=== PATIENT | female | born 1965 | race Caucasian/White ===

== ENCOUNTER → 2017-03-30 | Outpatient (CLI) | payer BC ==
[2017-03-30 08:52] LABS: CHLORIDE,CL 107 mmol/L (98-110); SODIUM,NA 141 mmol/L (136-146)
== END ==
LOC: MW.CHFP 08:02
PROVIDERS: ATTEND Physician Assistant
DX: E03.9 Hypothyroidism, unspecified (principal); E78.5 Hyperlipidemia, unspecified; G89.29 Other chronic pain
CPT/HCPCS: 36415; 80053; 80061; 84443

== ENCOUNTER → 2017-04-10 | Outpatient (CLI) | payer BC ==
--- NOTE | 2017-04-10 12:22 | MY ---
EXAMINATION: Bilateral digital mammography utilizing CAD. HISTORY: Screening exam. Comparison is made to previous studies dated 05/04/2015, 08/31/2011. FINDINGS: Bilateral scattered fibroglandular densities. No suspicious calcifications, masses or a rchitectural distortions. No pathologic appearing lymph nodes, no abnormal skin thickening or nipp le inversion. CAD highlighted regions appear normal at this time. IMPRESSION: BI-RADS category I - negative mammogram. Continued screening according to ACR-ACS gu idelines suggested. THE FALSE-NEGATIVE RATE OF MAMMOGRAM IS APPROXIMATELY 10%. MANAGEMENT OF A PALPABLE ABNORMALITY MUST BE BASED UPON CLINICAL GROUNDS. SENSITIVITY FOR DETECTION OF ABNORMALITIES IN DENSE BREASTS IS LOW. NOTE: A letter will be sent to the patient regarding findings. [facility] [place] -- [facility] [place] [phone] - FAX [phone]
== END ==
LOC: MW.MAM 09:29
PROVIDERS: ATTEND Physician Assistant
DX: Z12.31 Encounter for screening mammogram for malignant neoplasm of breast (principal)
CPT/HCPCS: G0202; G0202-26

== ENCOUNTER 2019-03-24 22:06 | Emergency (ER) | payer BC ==
[2019-03-24] MEDS ORDERED: Sodium Chloride 0.9% 1,000 ML IV ONE (22:23)
[2019-03-24] MEDS ORDERED: Nitroglycerin 0.4 MG Tab.SL SL PRN (22:23)
[2019-03-24] MEDS ORDERED: Aspirin 81 MG Tab.Chew PO ONE (22:23)
[2019-03-24] MEDS ORDERED: Pantoprazole 40 MG Vial IVPUSH ONE (22:23)
[2019-03-24] MEDS ORDERED: Sodium Chloride 0.9% 10 ML Syringe FLUSH PRN (22:23)
[2019-03-24] MEDS ORDERED: Sodium Chloride 0.9% 2.5 ML Syringe FLUSH PRN (22:23)
--- NOTE | 2019-03-24 22:26 | EDM.PDOC ---
ED HPI GENERAL MEDICAL PROBLEM - General Chief Complaint: Chest Pain Stated Complaint: CHEST PAIN Time Seen by Provider: 03/24/19 22:16 - History of Present Illness INITIAL COMMENTS - FREE TEXT/NARRATIVE: HISTORY AND PHYSICAL: History of present illness: The patient is a 53-year-old female with a history of hypothyroidism but no cardiac or pulmonary history and presents with on and off mid chest pain that started this morning as she was doing normal activities. The patient said she slept fine last evening and woke up and did not have the pain initially but as the day went on it was coming and going. At its worse she rated as a 10 over 10 and currently in the ED it is a 5/10. She took [id number] Tums as well as doing a nebulizer treatment and neither of which helped it but she went through the day thinking that maybe it would go away and she is now here for evaluation. She says it is worse when she is up going around and walking but not specifically worse with deep breaths or movement. She says she has had this in the past but it is never indoor throughout the day which is what worried her. Tonight she had the discomfort again in the mid chest and it radiated to both armpits and she was concerned that it did not radiate to her jaw back or abdomen. She's had no abdominal pain nausea or vomiting and no GI symptoms. She has no back pain no diaphoresis. She does have a significant family history of a mother who had a heart attack at 50. She does smoke cigarettes but denies drug use. She has no leg pain or swelling the patient also says she has no pulmonary disease and only has a nebulizer at home for prior illness. Review of systems: As per history of present illness and below otherwise all systems reviewed and negative. Past medical history: As per history of present illness and as reviewed below otherwise noncontributory. Surgical history: As per history of present illness and as reviewed below otherwise noncontributory. Social history: No reported history of drug or alcohol abuse. Family history: As per history of present illness and as reviewed below otherwise noncontributory. Physical exam: General: Well-developed well-nourished female who is nontoxic and vital signs are noted by me. She seems a little anxious in the room rearranging her blanket as I'm trying to examine her. HEENT: Atraumatic, normocephalic, negative for conjunctival pallor or scleral icterus, mucous membranes moist, throat clear, neck supple, nontender, trachea midline. Lungs: Clear to auscultation, breath sounds equal bilaterally, chest nontender. Heart: S1S2, regular, negative for clicks, rubs, or JVD. Abdomen: Soft, nondistended, nontender. Negative for masses or hepatosplenomegaly. Negative for costovertebral tenderness. Pelvis: Stable nontender. Genitourinary: Deferred. Rectal: Deferred. Extremities: Atraumatic, negative for cords or calf pain. Neurovascular unremarkable. No pedal edema or leg asymmetry Neuro: Awake, alert, oriented. Cranial nerves II through XII unremarkable. Cerebellum unremarkable. Motor and sensory unremarkable throughout. Exam nonfocal. Diagnostics: EKG chest x-ray CBC CMP amylase lipase INR troponin H. pylori Therapeutics: IV O2 monitor IV fluids aspirin Protonix nitroglycerin sublingual Aspirin, Nitropaste was ordered for transfer The patient told nursing that her chest pain was a 3/10 prior to receiving sublingual nitroglycerin and after one nitroglycerin it is still 3/10 and she is refusing anymore nitroglycerin at this time. On reevaluation the patient is telling me that the pain is barely a 1/10 and is almost completely gone. 2321: This case was discussed with Dr. Olmedo our hospitalist was feels uncomfortable accepting the patient in light of her risk factors and chest pain with a positive troponin. The patient is aware of this conversation and we will arrange for transfer to [facility]. 2324: Case was discussed with Dr. Hurts in the ER at [facility] who accepts the patient for transfer by ground transfer Impression: Chest pain, positive troponin rule out an STEMI CT Definitive disposition and diagnosis as appropriate pending reevaluation and review of above. - Related Data Allergies Allergy/AdvReac Type Severity Reaction Status Date / Time cefuroxime sodium Allergy Hives Verified 03/19/14 09:39 [From Zinacef] cephalexin monohydrate Allergy Hives Verified 03/19/14 09:39 [From Keflex] Penicillins Allergy Hives Verified 03/19/14 09:39 Home Meds: Home Meds Levothyroxine Sodium [Synthroid] 25 mcg PO DAILY 03/24/19 [History] Omeprazole Magnesium [Prilosec Otc] 20 mg PO DAILY 03/24/19 [History] ED ROS GENERAL - Review of Systems Review Of Systems: ROS reveals no pertinent complaints other than HPI. ED EXAM, GENERAL - Physical Exam Exam: See Below (See dictation) Course - Vital Signs Last Recorded V/S: Last Vital Signs Temp 36.3 C 03/24/19 22:11 Pulse 86 03/24/19 22:11 Resp 20 03/24/19 22:11 BP 152/69 H 03/24/19 22:48 Pulse Ox 96 03/24/19 22:22 - Orders/Labs/Meds Orders: Active Orders 24 hr Category Date Time Status Cardiac Monitoring [RC] . DIRECTED Care 03/24/19 22:22 Active EKG Documentation Completion [RC] STAT Care 03/24/19 22:22 Active Oxygen Therapy, ED [RC] ASDIRECTED Care 03/24/19 22:22 Active Pulse Oximetry [RC] ASDIRECTED Care 03/24/19 22:22 Active Acetaminophen [Tylenol] Med 03/24/19 23:27 Once 650 mg PO NOW ONE Nitroglycerin [Nitro-Bid 2%] Med 03/24/19 23:27 Once 0.5 gm TOP ONETIME ONE Nitroglycerin [Nitrostat] Med 03/24/19 22:23 Active 0.4 mg SL Q5M PRN Sodium Chloride 0.9% [Saline Flush] Med 03/24/19 22:23 Active 10 ml FLUSH ASDIRECTED PRN Sodium Chloride 0.9% [Saline Flush] Med 03/24/19 22:23 Active 2.5 ml FLUSH ASDIRECTED PRN Saline Lock Insert [OM.PC] Stat Oth 03/24/19 22:22 Ordered Medication Orders Nitroglycerin (Nitrostat) 0.4 mg SL Q5M PRN PRN Reason: Chest Pain Last Admin: 03/24/19 22:48 Dose: 0.4 mg Sodium Chloride (Saline Flush) 10 ml FLUSH ASDIRECTED PRN PRN Reason: Keep Vein Open Sodium Chloride (Saline Flush) 2.5 ml FLUSH ASDIRECTED PRN PRN Reason: Keep Vein Open Labs: Laboratory Tests 03/24/19 03/24/19 03/24/19 Range/Units 22:14 22:14 22:14 WBC 8.19 (4.0-11.0) K/uL RBC 4.72 (4.30-5.90) M/uL Hgb 14.6 (12.0-16.0) g/dL Hct 42.5 (36.0-46.0) % MCV 90.0 (80.0-98.0) fL MCH 30.9 (27.0-32.0) pg MCHC 34.4 (31.0-37.0) g/dL RDW Std Deviation 40.9 (28.0-62.0) fl RDW Coeff of [place] 12 (11.0-15.0) % Plt Count 218 (150-400) K/uL MPV 10.50 (7.40-12.00) fL Neut % (Auto) 44.3 L (48.0-80.0) % Lymph % (Auto) 41.8 H (16.0-40.0) % [place] % (Auto) 9.4 (0.0-15.0) % Eos % (Auto) 3.9 (0.0-7.0) % Baso % (Auto) 0.6 (0.0-1.5) % Neut # (Auto) 3.6 (1.4-5.7) K/uL Lymph # (Auto) 3.4 H (0.6-2.4) K/uL [place] # (Auto) 0.8 (0.0-0.8) K/uL Eos # (Auto) 0.3 (0.0-0.7) K/uL Baso # (Auto) 0.1 (0.0-0.1) K/uL Nucleated RBC % 0.0 /100WBC Nucleated RBCs # 0 K/uL INR 0.94 Sodium 139 (136-145) mmol/L Potassium 3.2 L (3.5-5.1) mmol/L Chloride 103 (98-107) mmol/L Carbon Dioxide 26.3 (21.0-32.0) mmol/L BUN 16 (7.0-18.0) mg/dL Creatinine 1.1 H (0.6-1.0) mg/dL Est Cr Clr Drug Dosing 45.70 mL/min Estimated GFR (MDRD) 51.6 ml/min Glucose 134 H (74-106) mg/dL Calcium 8.8 (8.5-10.1) mg/dL Total Bilirubin 0.3 (0.2-1.0) mg/dL AST 14 L (15-37) IU/L ALT 18 (14-63) IU/L Alkaline Phosphatase 84 (46-116) U/L Troponin I 0.073 H* (0.000-0.056) ng/mL Total Protein 8.0 (6.4-8.2) g/dL Albumin 4.1 (3.4-5.0) g/dL Globulin 3.9 (2.6-4.0) g/dL Albumin/Globulin Ratio 1.1 (0.9-1.6) Amylase 55 (25-115) U/L Lipase 257 (73-393) U/L H. pylori IgG Antibody (NEG) 03/24/19 Range/Units 22:14 WBC (4.0-11.0) K/uL RBC (4.30-5.90) M/uL Hgb (12.0-16.0) g/dL Hct (36.0-46.0) % MCV (80.0-98.0) fL MCH (27.0-32.0) pg MCHC (31.0-37.0) g/dL RDW Std Deviation (28.0-62.0) fl RDW Coeff of [place] (11.0-15.0) % Plt Count (150-400) K/uL MPV (7.40-12.00) fL Neut % (Auto) (48.0-80.0) % Lymph % (Auto) (16.0-40.0) % [place] % (Auto) (0.0-15.0) % Eos % (Auto) (0.0-7.0) % Baso % (Auto) (0.0-1.5) % Neut # (Auto) (1.4-5.7) K/uL Lymph # (Auto) (0.6-2.4) K/uL [place] # (Auto) (0.0-0.8) K/uL Eos # (Auto) (0.0-0.7) K/uL Baso # (Auto) (0.0-0.1) K/uL Nucleated RBC % /100WBC Nucleated RBCs # K/uL INR Sodium (136-145) mmol/L Potassium (3.5-5.1) mmol/L Chloride (98-107) mmol/L Carbon Dioxide (21.0-32.0) mmol/L BUN (7.0-18.0) mg/dL Creatinine (0.6-1.0) mg/dL Est Cr Clr Drug Dosing mL/min Estimated GFR (MDRD) ml/min Glucose (74-106) mg/dL Calcium (8.5-10.1) mg/dL Total Bilirubin (0.2-1.0) mg/dL AST (15-37) IU/L ALT (14-63) IU/L Alkaline Phosphatase (46-116) U/L Troponin I (0.000-0.056) ng/mL Total Protein (6.4-8.2) g/dL Albumin (3.4-5.0) g/dL Globulin (2.6-4.0) g/dL Albumin/Globulin Ratio (0.9-1.6) Amylase (25-115) U/L Lipase (73-393) U/L H. pylori IgG Antibody NEGATIVE (NEG) Meds: Medications Generic Name Dose Route Start Last Admin Trade Name Freq PRN Reason Stop Dose Admin Nitroglycerin 0.4 mg 03/24/19 22:23 03/24/19 22:48 Nitrostat SL 0.4 mg Q5M PRN Administration Chest Pain Sodium Chloride 10 ml 03/24/19 22:23 Saline Flush FLUSH ASDIRECTED PRN Keep Vein Open Sodium Chloride 2.5 ml 03/24/19 22:23 Saline Flush FLUSH ASDIRECTED PRN Keep Vein Open Discontinued Medications Generic Name Dose Route Start Last Admin Trade Name Freq PRN Reason Stop Dose Admin Aspirin 324 mg 03/24/19 22:23 03/24/19 22:42 Aspirin PO 03/24/19 22:24 324 mg ONETIME ONE Administration Sodium Chloride 1,000 mls @ 999 mls/hr 03/24/19 22:23 03/24/19 22:42 Normal Saline IV 03/24/19 23:23 999 mls/hr STAT ONE Administration Pantoprazole Sodium 80 mg 03/24/19 22:23 03/24/19 22:43 Protonix Iv IVPUSH 03/24/19 22:24 80 mg .BOLUS ONE Administration Sodium Chloride 20 ml 03/24/19 22:32 03/24/19 22:43 Normal Saline IV 03/24/19 22:33 20 ml NOW STA Administration Departure - Departure Time of Disposition: 23:29 Disposition: DC/Tfer to Acute Hospital 02 Condition: Good Clinical Impression: Elevated troponin Chest pain Qualifiers: Chest pain type: unspecified Qualified Code(s): R07.9 - Chest pain, unspecified - Discharge Information Forms: ED Department Discharge - My Orders Last 24 Hours: My Active Orders 03/24/19 22:22 Cardiac Monitoring [RC] . DIRECTED EKG Documentation Completion [RC] STAT Oxygen Therapy, ED [RC] ASDIRECTED Pulse Oximetry [RC] ASDIRECTED Saline Lock Insert [OM.PC] Stat 03/24/19 22:23 Nitroglycerin [Nitrostat] 0.4 mg SL Q5M PRN Sodium Chloride 0.9% [Saline Flush] 10 ml FLUSH ASDIRECTED PRN Sodium Chloride 0.9% [Saline Flush] 2.5 ml FLUSH ASDIRECTED PRN 03/24/19 23:27 Acetaminophen [Tylenol] 650 mg PO NOW ONE Nitroglycerin [Nitro-Bid 2%] 0.5 gm TOP ONETIME ONE - Assessment/Plan Last 24 Hours: My Active Orders 03/24/19 22:22 Cardiac Monitoring [RC] . DIRECTED EKG Documentation Completion [RC] STAT Oxygen Therapy, ED [RC] ASDIRECTED Pulse Oximetry [RC] ASDIRECTED Saline Lock Insert [OM.PC] Stat 03/24/19 22:23 Nitroglycerin [Nitrostat] 0.4 mg SL Q5M PRN Sodium Chloride 0.9% [Saline Flush] 10 ml FLUSH ASDIRECTED PRN Sodium Chloride 0.9% [Saline Flush] 2.5 ml FLUSH ASDIRECTED PRN 03/24/19 23:27 Acetaminophen [Tylenol] 650 mg PO NOW ONE Nitroglycerin [Nitro-Bid 2%] 0.5 gm TOP ONETIME ONE
[2019-03-24] MEDS ORDERED: Sodium Chloride 0.9% 10 ML SDV IV STA (22:32)
--- NOTE | 2019-03-24 23:14 | CR ---
INDICATION: Chest pain COMPARISON: None available. FINDINGS: An erect single view of the chest was obtained at 23 06 hours. The lungs are clear. No focal or diffuse infiltrates are present. The heart is normal in size. The mediastinum is normal in appearance. The osseous structures are normal in appearance for the patient`s age. IMPRESSION: Normal chest single view. Dictated by Leandro Harris MD @ Mar 24 2019 11:11PM Signed by Dr. Leandro Harris @ Mar 24 2019 11:12PM
[2019-03-24] MEDS ORDERED: Nitroglycerin 2% Oint 1 GM UD Packet TOP ONE (23:27)
[2019-03-24] MEDS ORDERED: Acetaminophen 325 MG Tab PO ONE (23:27)
== END 2019-03-25 00:50 ==
LOC: MW.ED 22:06
DX: R07.9 Chest pain, unspecified (principal); R79.89 Other specified abnormal findings of blood chemistry; Z88.8 Allergy status to other drugs, medicaments and biological substances; Z88.0 Allergy status to penicillin; Z79.899 Other long term (current) drug therapy
CPT/HCPCS: 36415; 71045; 80053; 82150; 83690; 84484; 85025; 85610; 86677; 93005; 96361; 96374; 99285; A9270; C9113; J7040; J7050

== ENCOUNTER 2019-04-10 14:24 | Observation (INO) | payer BC ==
[2019-04-10] MEDS ORDERED: Aspirin 81 MG Tab.Chew PO ONE (14:36)
--- NOTE | 2019-04-10 14:36 | EDM.PDOC ---
ED HPI GENERAL MEDICAL PROBLEM - General Chief Complaint: Neurological Problem Stated Complaint: chest pain Time Seen by Provider: 04/10/19 14:33 - History of Present Illness INITIAL COMMENTS - FREE TEXT/NARRATIVE: HISTORY AND PHYSICAL: History of present illness: Patient's 53-year-old white female with history of coronary artery disease and myocardial infarction who presents with concern of dizziness and near syncope that occurred while she was at work patient is still a smoker she denies chest pain shortness of breath nausea or vomiting she denies any other neurological signs or symptoms. Review of systems: As per history of present illness and below otherwise all systems reviewed and negative. Past medical history: As per history of present illness and as reviewed below otherwise noncontributory. Surgical history: As per history of present illness and as reviewed below otherwise noncontributory. Social history: No reported history of drug or alcohol abuse. Family history: As per history of present illness and as reviewed below otherwise noncontributory. Physical exam: HEENT: Atraumatic, normocephalic, pupils reactive, negative for conjunctival pallor or scleral icterus, mucous membranes dry, throat clear, neck supple, nontender, trachea midline. Lungs: Clear to auscultation, breath sounds equal bilaterally, chest nontender. Heart: S1S2, regular, negative for clicks, rubs, or JVD. Abdomen: Soft, nondistended, nontender. Negative for masses or hepatosplenomegaly. Negative for costovertebral tenderness. Pelvis: Stable nontender. Genitourinary: Deferred. Rectal: Deferred. Extremities: Atraumatic, negative for cords or calf pain. Neurovascular unremarkable. Neuro: Awake, alert, oriented. Cranial nerves II through XII unremarkable. Cerebellum unremarkable. Motor and sensory unremarkable throughout. Exam nonfocal. Diagnostics: CBC CMP troponin PT/INR chest x-ray EKG CT brain Therapeutics: Saline 1 L bolus Impression: #1 dizziness with near syncope #2 history of coronary artery disease #3 history of MN Definitive disposition and diagnosis as appropriate pending reevaluation and review of above. - Related Data Allergies Allergy/AdvReac Type Severity Reaction Status Date / Time cefuroxime sodium Allergy Hives Verified 04/10/19 14:37 [From Zinacef] cephalexin monohydrate Allergy Hives Verified 04/10/19 14:37 [From Keflex] Penicillins Allergy Hives Verified 04/10/19 14:37 Home Meds: Home Meds ALPRAZolam [Xanax] 0.25 - 0.5 mg PO BID PRN 04/10/19 [History] Acetaminophen with Codeine [Tylenol with Codeine #3 Tablet] 30 - 300 mg PO Q4H PRN 04/10/19 [History] Aspirin [Lo-Dose Aspirin EC] 81 mg PO DAILY 04/10/19 [History] Estrogens, Conjugated [Premarin Vaginal Crm] 0.5 gm VAG MOWEFR@2100 04/10/19 [ History] Levothyroxine Sodium [Levoxyl] 37.5 mcg PO ACBREAKFAST 04/10/19 [History] Metoprolol Tartrate 25 mg PO BID 04/10/19 [History] Omeprazole 20 mg PO BIDAC 04/10/19 [History] Potassium Chloride 10 meq PO BIDMEALS 04/10/19 [History] Ticagrelor [Brilinta] 90 mg PO BID 04/10/19 [History] atorvaSTATin [Lipitor] 40 mg PO BEDTIME 04/10/19 [History] Past Medical History Endocrine/Metabolic History: Reports: Hypothyroidism - Infectious Disease History Infectious Disease History: Reports: Shingles - Past Surgical History GI Surgical History: Reports: Colonoscopy Female Surgical History: Reports: Section, Hysterectomy Social & Family History - Family History Cardiac: Reports: MN Other Cardiac Family History: mother has had two MN's - Caffeine Use Caffeine Use: Reports: Coffee ED ROS GENERAL - Review of Systems Review Of Systems: ROS reveals no pertinent complaints other than HPI. ED EXAM, GENERAL - Physical Exam Exam: See Below (See dictation) Course - Vital Signs Last Recorded V/S: Last Vital Signs Temp 36.9 C 04/10/19 14:38 Pulse 69 04/10/19 16:32 Resp 12 04/10/19 16:32 BP 152/86 H 04/10/19 16:32 Pulse Ox 97 04/10/19 16:32 - Orders/Labs/Meds Orders: Active Orders 24 hr Category Date Time Status Cardiac Monitoring [RC] . DIRECTED Care 04/10/19 14:36 Active EKG Documentation Completion [RC] STAT Care 04/10/19 14:36 Active Sodium Chloride 0.9% [Normal Saline] 1,000 ml Med 04/10/19 14:45 Active IV ASDIRECTED Medication Orders Sodium Chloride (Normal Saline) 1,000 mls @ 999 mls/hr IV ASDIRECTED JOSE Last Admin: 04/10/19 14:34 Dose: 999 mls/hr Labs: Laboratory Tests 04/10/19 04/10/19 04/10/19 Range/Units 14:55 14:55 14:55 WBC 7.59 (4.0-11.0) K/uL RBC 4.63 (4.30-5.90) M/uL Hgb 14.2 (12.0-16.0) g/dL Hct 41.2 (36.0-46.0) % MCV 89.0 (80.0-98.0) fL MCH 30.7 (27.0-32.0) pg MCHC 34.5 (31.0-37.0) g/dL RDW Std Deviation 39.7 (28.0-62.0) fl RDW Coeff of Duncan 13 (11.0-15.0) % Plt Count 256 (150-400) K/uL MPV 10.20 (7.40-12.00) fL Neut % (Auto) 48.4 (48.0-80.0) % Lymph % (Auto) 38.7 (16.0-40.0) % [place] % (Auto) 8.2 (0.0-15.0) % Eos % (Auto) 3.8 (0.0-7.0) % Baso % (Auto) 0.9 (0.0-1.5) % Neut # (Auto) 3.7 (1.4-5.7) K/uL Lymph # (Auto) 2.9 H (0.6-2.4) K/uL [place] # (Auto) 0.6 (0.0-0.8) K/uL Eos # (Auto) 0.3 (0.0-0.7) K/uL Baso # (Auto) 0.1 (0.0-0.1) K/uL Nucleated RBC % 0.0 /100WBC Nucleated RBCs # 0 K/uL INR 0.94 Sodium 142 (136-145) mmol/L Potassium 3.9 (3.5-5.1) mmol/L Chloride 104 (98-107) mmol/L Carbon Dioxide 25.8 (21.0-32.0) mmol/L BUN 15 (7.0-18.0) mg/dL Creatinine 1.0 (0.6-1.0) mg/dL Est Cr Clr Drug Dosing 61.81 mL/min Estimated GFR (MDRD) 57.6 ml/min Glucose 99 (74-106) mg/dL Calcium 8.7 (8.5-10.1) mg/dL Total Bilirubin 0.3 (0.2-1.0) mg/dL AST 24 (15-37) IU/L ALT 27 (14-63) IU/L Alkaline Phosphatase 96 (46-116) U/L Troponin I < 0.050 (0.000-0.056) ng/mL Total Protein 7.7 (6.4-8.2) g/dL Albumin 4.0 (3.4-5.0) g/dL Globulin 3.7 (2.6-4.0) g/dL Albumin/Globulin Ratio 1.1 (0.9-1.6) Urine Color Urine Appearance Urine pH (5.0-8.0) Ur Specific [place] (1.001-1.035) Urine Protein (NEGATIVE) mg/dL Urine Glucose (UA) (NEGATIVE) mg/dL Urine Ketones (NEGATIVE) mg/dL Urine Occult Blood (NEGATIVE) Urine Nitrite (NEGATIVE) Urine Bilirubin (NEGATIVE) Urine Urobilinogen (<2.0) EU/dL Ur Leukocyte Esterase (NEGATIVE) Urine RBC (0-2/HPF) Urine WBC (0-5/HPF) Ur Epithelial Cells (NONE-FEW) Urine Bacteria (NEGATIVE) 04/10/19 Range/Units 15:12 WBC (4.0-11.0) K/uL RBC (4.30-5.90) M/uL Hgb (12.0-16.0) g/dL Hct (36.0-46.0) % MCV (80.0-98.0) fL MCH (27.0-32.0) pg MCHC (31.0-37.0) g/dL RDW Std Deviation (28.0-62.0) fl RDW Coeff of [place] (11.0-15.0) % Plt Count (150-400) K/uL MPV (7.40-12.00) fL Neut % (Auto) (48.0-80.0) % Lymph % (Auto) (16.0-40.0) % [place] % (Auto) (0.0-15.0) % Eos % (Auto) (0.0-7.0) % Baso % (Auto) (0.0-1.5) % Neut # (Auto) (1.4-5.7) K/uL Lymph # (Auto) (0.6-2.4) K/uL [place] # (Auto) (0.0-0.8) K/uL Eos # (Auto) (0.0-0.7) K/uL Baso # (Auto) (0.0-0.1) K/uL Nucleated RBC % /100WBC Nucleated RBCs # K/uL INR Sodium (136-145) mmol/L Potassium (3.5-5.1) mmol/L Chloride (98-107) mmol/L Carbon Dioxide (21.0-32.0) mmol/L BUN (7.0-18.0) mg/dL Creatinine (0.6-1.0) mg/dL Est Cr Clr Drug Dosing mL/min Estimated GFR (MDRD) ml/min Glucose (74-106) mg/dL Calcium (8.5-10.1) mg/dL Total Bilirubin (0.2-1.0) mg/dL AST (15-37) IU/L ALT (14-63) IU/L Alkaline Phosphatase (46-116) U/L Troponin I (0.000-0.056) ng/mL Total Protein (6.4-8.2) g/dL Albumin (3.4-5.0) g/dL Globulin (2.6-4.0) g/dL Albumin/Globulin Ratio (0.9-1.6) Urine Color YELLOW Urine Appearance CLEAR Urine pH 6.5 (5.0-8.0) Ur Specific [place] <= 1.005 (1.001-1.035) Urine Protein NEGATIVE (NEGATIVE) mg/dL Urine Glucose (UA) NEGATIVE (NEGATIVE) mg/dL Urine Ketones NEGATIVE (NEGATIVE) mg/dL Urine Occult Blood NEGATIVE (NEGATIVE) Urine Nitrite NEGATIVE (NEGATIVE) Urine Bilirubin NEGATIVE (NEGATIVE) Urine Urobilinogen 0.2 (<2.0) EU/dL Ur Leukocyte Esterase NEGATIVE (NEGATIVE) Urine RBC 0-2 (0-2/HPF) Urine WBC 0-2 (0-5/HPF) Ur Epithelial Cells OCCASIONAL (NONE-FEW) Urine Bacteria RARE (NEGATIVE) Meds: Medications Generic Name Dose Route Start Last Admin Trade Name Freq PRN Reason Stop Dose Admin Sodium Chloride 1,000 mls @ 999 mls/hr 04/10/19 14:45 04/10/19 14:34 Normal Saline IV 999 mls/hr ASDIRECTED JOSE Administration Departure - Departure Time of Disposition: 16:45 Disposition: Refer to Observation Condition: Good Clinical Impression: Near syncope, Dizziness, History of coronary artery disease - Discharge Information Referrals: PCP,None [Primary Care Provider] - Forms: ED Department Discharge - My Orders Last 24 Hours: My Active Orders 04/10/19 14:36 Cardiac Monitoring [RC] . DIRECTED EKG Documentation Completion [RC] STAT 04/10/19 14:45 Sodium Chloride 0.9% [Normal Saline] 1,000 ml IV ASDIRECTED - Assessment/Plan Last 24 Hours: My Active Orders 04/10/19 14:36 Cardiac Monitoring [RC] . DIRECTED EKG Documentation Completion [RC] STAT 04/10/19 14:45 Sodium Chloride 0.9% [Normal Saline] 1,000 ml IV ASDIRECTED
[2019-04-10] MEDS ORDERED: Sodium Chloride 0.9% 1,000 ML IV SCH ×2 (14:45→19:00)
--- NOTE | 2019-04-10 15:20 | CR ---
EXAMINATION: Portable chest radiograph. HISTORY: Dizziness. FINDINGS: The trachea is midline. The cardiomediastinal silhouette is within normal limits. Probable calcified right infrahilar lymph nodes. No pulmonary infiltrates, effusions or pneumothorax. Osseous structures appear unremarkable. IMPRESSION: No acute cardiopulmonary process.
[2019-04-10 15:40] LABS: CHLORIDE,CL 104 mmol/L (98-107); SODIUM,NA 142 mmol/L (136-145)
--- NOTE | 2019-04-10 16:17 | CT ---
INDICATION: Dizziness off and on ever since her heart attack [address] HEAD WITHOUT CONTRAST TECHNIQUE: Multiple axial CT images were performed through the head without intravenous contrast administration. COMPARISON: No previous studies are currently available for comparison. FINDINGS: No acute intracranial hemorrhage is identified. No extra-axial collections are evident and there is no mass effect or midline shift. Ventricles are normal in size and configuration. Brain parenchyma appears normal with unremarkable momin-white differentiation. Osseous structures are within normal limits and no fractures are seen. Included portions of the paranasal sinuses and mastoid air cells are normally aerated. IMPRESSION: Normal non-contrast head CT. DAMIR PATIÑO MD [employer] [employer] Dictated by: Montez Patiño MD @ 04/10/2019 16:16:29 (Electronically Signed)
--- NOTE | 2019-04-10 17:41 | PCM.HP ---
H&P History of Present Illness - General Date of Service: 04/10/19 Admit Problem/Dx: Admission Diagnosis/Problem Admission Diagnosis/Problem Near syncope Source of Information: Patient, Family History Limitations: Reports: No Limitations - History of Present Illness Initial Comments - Free Text/Narative: The patient is a 53-year-old lady who has a known history of coronary artery disease and myocardial infarction which she had stented 2 weeks ago. Since that time the patient says that she has been "not quite right" and is still having difficulty. The patient says that she has been having trouble with shortness of breath, dizziness and lightheadedness, fatigue and weakness. The patient has denied any chest pain. The patient had been evaluated as a follow-up and was told to return to cardiology in 3 months. Has been taking her medications as prescribed. The patient unfortunately is still a smoker and she's trying to quit. The patient has no other complaints at this time. Onset of Symptoms: Reports: Gradual Duration of Symptoms: Reports: Week(s): Location: Reports: Generalized Severity: Moderate Improves with: Reports: None Worsens with: Reports: None Context: Reports: Other (Recent coronary artery stenting) Associated Symptoms: Reports: Malaise - Related Data Allergies/Adverse Reactions: Allergies Allergy/AdvReac Type Severity Reaction Status Date / Time cefuroxime sodium Allergy Hives Verified 04/10/19 14:37 [From Zinacef] cephalexin monohydrate Allergy Hives Verified 04/10/19 14:37 [From Keflex] Penicillins Allergy Hives Verified 04/10/19 14:37 Home Medications: Home Meds ALPRAZolam [Xanax] 0.25 - 0.5 mg PO BID PRN 04/10/19 [History] Acetaminophen with Codeine [Tylenol with Codeine #3 Tablet] 30 - 300 mg PO Q4H PRN 04/10/19 [History] Aspirin [Lo-Dose Aspirin EC] 81 mg PO DAILY 04/10/19 [History] Levothyroxine Sodium [Levoxyl] 37.5 mcg PO ACBREAKFAST 04/10/19 [History] Metoprolol Tartrate 25 mg PO BID 04/10/19 [History] Omeprazole 20 mg PO BIDAC 04/10/19 [History] Ticagrelor [Brilinta] 90 mg PO BID 04/10/19 [History] atorvaSTATin [Lipitor] 40 mg PO BEDTIME 04/10/19 [History] Past Medical History HEENT History: Reports: None Cardiovascular History: Reports: CAD, UT, Stents Respiratory History: Reports: None Gastrointestinal History: Reports: GERD Genitourinary History: Reports: None Musculoskeletal History: Reports: None Neurological History: Reports: None Psychiatric History: Reports: Anxiety Endocrine/Metabolic History: Reports: Hypothyroidism Hematologic History: Reports: None - Infectious Disease History Infectious Disease History: Reports: Chicken Pox, Shingles - Past Surgical History GI Surgical History: Reports: Colonoscopy Female Surgical History: Reports: Section, Hysterectomy Social & Family History - Family History Cardiac: Reports: UT Other Cardiac Family History: mother has had two UT's - Tobacco Use Smoking Status *Q: Current Every Day Smoker Years of Tobacco use: 40 Packs/Tins Daily: 0.5 - Caffeine Use Caffeine Use: Reports: Coffee - Alcohol Use Alcohol Use History: No - Recreational Drug Use Recreational Drug Use: No - Living Situation & Occupation Living situation: Reports: , with Family Occupation: Retired H&P Review of Systems - Review of Systems: Review Of Systems: See Below General: Reports: Malaise, Weakness, Fatigue, Decreased Appetite HEENT: Reports: No Symptoms Pulmonary: Reports: Shortness of Breath Cardiovascular: Reports: Dyspnea on Exertion, Orthopnea, Edema, Lightheadedness Gastrointestinal: Reports: No Symptoms Genitourinary: Reports: No Symptoms Musculoskeletal: Reports: No Symptoms Skin: Reports: No Symptoms Psychiatric: Reports: No Symptoms Neurological: Reports: No Symptoms Hematologic/Lymphatic: Reports: No Symptoms Immunologic: Reports: No Symptoms Exam - Exam Exam: See Below - Vital Signs Vital Signs: Last Vital Signs Temp 36.9 C 04/10/19 14:38 Pulse 65 04/10/19 16:52 Resp 12 04/10/19 16:52 BP 156/89 H 04/10/19 16:52 Pulse Ox 98 04/10/19 16:52 Weight: 79.333 kg - Exam Quality Assessment: No: Supplemental Oxygen General: Alert, Oriented, Cooperative HEENT: Conjunctiva Clear, EACs Clear, EOMI, Hearing Intact, Mucosa Moist & [place] , Pupils Equal, PERRLA Neck: Supple, Trachea Midline, JVD Lungs: Normal Respiratory Effort, Crackles (Bibasilar) Cardiovascular: Regular Rate, Regular Rhythm, Normal S1, Normal S2 GI/Abdominal Exam: Normal Bowel Sounds, Soft, Non-Tender, No Distention. No: Guarding, Rigid, Rebound Back Exam: Normal Inspection, Full Range of Motion Extremities: Normal Inspection, Normal Range of Motion, No Pedal Edema Skin: Warm, Dry, Intact Neurological: Cranial Nerves Intact Neuro Extensive - Mental Status: Alert, Oriented x3 Psychiatric: Alert, Normal Affect, Normal Mood - Patient Data Lab Results Last 24 hrs: Laboratory Results - last 24 hr 04/10/19 04/10/19 04/10/19 Range/Units 14:55 14:55 14:55 WBC 7.59 (4.0-11.0) K/uL RBC 4.63 (4.30-5.90) M/uL Hgb 14.2 (12.0-16.0) g/dL Hct 41.2 (36.0-46.0) % MCV 89.0 (80.0-98.0) fL MCH 30.7 (27.0-32.0) pg MCHC 34.5 (31.0-37.0) g/dL RDW Std Deviation 39.7 (28.0-62.0) fl RDW Coeff of Duncan 13 (11.0-15.0) % Plt Count 256 (150-400) K/uL MPV 10.20 (7.40-12.00) fL Neut % (Auto) 48.4 (48.0-80.0) % Lymph % (Auto) 38.7 (16.0-40.0) % [place] % (Auto) 8.2 (0.0-15.0) % Eos % (Auto) 3.8 (0.0-7.0) % Baso % (Auto) 0.9 (0.0-1.5) % Neut # (Auto) 3.7 (1.4-5.7) K/uL Lymph # (Auto) 2.9 H (0.6-2.4) K/uL [place] # (Auto) 0.6 (0.0-0.8) K/uL Eos # (Auto) 0.3 (0.0-0.7) K/uL Baso # (Auto) 0.1 (0.0-0.1) K/uL Nucleated RBC % 0.0 /100WBC Nucleated RBCs # 0 K/uL INR 0.94 Sodium 142 (136-145) mmol/L Potassium 3.9 (3.5-5.1) mmol/L Chloride 104 (98-107) mmol/L Carbon Dioxide 25.8 (21.0-32.0) mmol/L BUN 15 (7.0-18.0) mg/dL Creatinine 1.0 (0.6-1.0) mg/dL Est Cr Clr Drug Dosing 61.81 mL/min Estimated GFR (MDRD) 57.6 ml/min Glucose 99 (74-106) mg/dL Calcium 8.7 (8.5-10.1) mg/dL Total Bilirubin 0.3 (0.2-1.0) mg/dL AST 24 (15-37) IU/L ALT 27 (14-63) IU/L Alkaline Phosphatase 96 (46-116) U/L Troponin I < 0.050 (0.000-0.056) ng/mL Total Protein 7.7 (6.4-8.2) g/dL Albumin 4.0 (3.4-5.0) g/dL Globulin 3.7 (2.6-4.0) g/dL Albumin/Globulin Ratio 1.1 (0.9-1.6) Urine Color Urine Appearance Urine pH (5.0-8.0) Ur Specific [place] (1.001-1.035) Urine Protein (NEGATIVE) mg/dL Urine Glucose (UA) (NEGATIVE) mg/dL Urine Ketones (NEGATIVE) mg/dL Urine Occult Blood (NEGATIVE) Urine Nitrite (NEGATIVE) Urine Bilirubin (NEGATIVE) Urine Urobilinogen (<2.0) EU/dL Ur Leukocyte Esterase (NEGATIVE) Urine RBC (0-2/HPF) Urine WBC (0-5/HPF) Ur Epithelial Cells (NONE-FEW) Urine Bacteria (NEGATIVE) 04/10/19 Range/Units 15:12 WBC (4.0-11.0) K/uL RBC (4.30-5.90) M/uL Hgb (12.0-16.0) g/dL Hct (36.0-46.0) % MCV (80.0-98.0) fL MCH (27.0-32.0) pg MCHC (31.0-37.0) g/dL RDW Std Deviation (28.0-62.0) fl RDW Coeff of Duncan (11.0-15.0) % Plt Count (150-400) K/uL MPV (7.40-12.00) fL Neut % (Auto) (48.0-80.0) % Lymph % (Auto) (16.0-40.0) % [place] % (Auto) (0.0-15.0) % Eos % (Auto) (0.0-7.0) % Baso % (Auto) (0.0-1.5) % Neut # (Auto) (1.4-5.7) K/uL Lymph # (Auto) (0.6-2.4) K/uL [place] # (Auto) (0.0-0.8) K/uL Eos # (Auto) (0.0-0.7) K/uL Baso # (Auto) (0.0-0.1) K/uL Nucleated RBC % /100WBC Nucleated RBCs # K/uL INR Sodium (136-145) mmol/L Potassium (3.5-5.1) mmol/L Chloride (98-107) mmol/L Carbon Dioxide (21.0-32.0) mmol/L BUN (7.0-18.0) mg/dL Creatinine (0.6-1.0) mg/dL Est Cr Clr Drug Dosing mL/min Estimated GFR (MDRD) ml/min Glucose (74-106) mg/dL Calcium (8.5-10.1) mg/dL Total Bilirubin (0.2-1.0) mg/dL AST (15-37) IU/L ALT (14-63) IU/L Alkaline Phosphatase (46-116) U/L Troponin I (0.000-0.056) ng/mL Total Protein (6.4-8.2) g/dL Albumin (3.4-5.0) g/dL Globulin (2.6-4.0) g/dL Albumin/Globulin Ratio (0.9-1.6) Urine Color YELLOW Urine Appearance CLEAR Urine pH 6.5 (5.0-8.0) Ur Specific [place] <= 1.005 (1.001-1.035) Urine Protein NEGATIVE (NEGATIVE) mg/dL Urine Glucose (UA) NEGATIVE (NEGATIVE) mg/dL Urine Ketones NEGATIVE (NEGATIVE) mg/dL Urine Occult Blood NEGATIVE (NEGATIVE) Urine Nitrite NEGATIVE (NEGATIVE) Urine Bilirubin NEGATIVE (NEGATIVE) Urine Urobilinogen 0.2 (<2.0) EU/dL Ur Leukocyte Esterase NEGATIVE (NEGATIVE) Urine RBC 0-2 (0-2/HPF) Urine WBC 0-2 (0-5/HPF) Ur Epithelial Cells OCCASIONAL (NONE-FEW) Urine Bacteria RARE (NEGATIVE) Result Diagrams: 04/10/19 14:55 04/10/19 14:55 - Problem List (1) Heart failure SNOMED Code(s): 91315785 ICD Code: I50.9 - HEART FAILURE, UNSPECIFIED Status: Acute Priority: High Current Visit: Yes Qualifiers: Heart failure type: unspecified Heart failure chronicity: acute Qualified Code(s): I50.9 - Heart failure, unspecified (2) Shortness of breath SNOMED Code(s): 984953789 ICD Code: R06.02 - SHORTNESS OF BREATH Status: Acute Current Visit: Yes (3) History of coronary artery disease SNOMED Code(s): 440895692 ICD Code: Z86.79 - PERSONAL HISTORY OF OTHER DISEASES OF THE CIRCULATORY SYSTEM Status: Acute Current Visit: Yes (4) Tobacco abuse SNOMED Code(s): 337495450 ICD Code: Z72.0 - TOBACCO USE Status: Chronic Priority: High Current Visit: Yes Problem List Initiated/Reviewed/Updated: Yes Orders Last 24hrs: Active Orders 24 hr Category Date Time Status Patient Status [ADT] Stat ADT 04/10/19 16:46 Active Cardiac Monitoring [RC] . DIRECTED Care 04/10/19 14:36 Active EKG Documentation Completion [RC] STAT Care 04/10/19 14:36 Active Sodium Chloride 0.9% [Normal Saline] 1,000 ml Med 04/10/19 14:45 Active IV ASDIRECTED Medication Orders Sodium Chloride (Normal Saline) 1,000 mls @ 999 mls/hr IV ASDIRECTED JOSE Last Admin: 04/10/19 14:34 Dose: 999 mls/hr Assessment/Plan Comment:: The patient is a 53-year-old lady who has been admitted out of concern for shortness of breath, fatigue, malaise and dizziness which has occurred since the patient had undergone coronary artery stenting 3 weeks ago. The patient's blood pressures have been within normal limits. The patient will be kept on telemetry. She will also have a heart healthy diet as tolerated. I'm concerned that the patient may have difficulties with new onset heart failure and as a result of this I've ordered a 2-D echocardiogram. The patient will be kept on her medication for her recent stenting. The patient will also have DVT prophylaxis with the use of SCDs. Patient also has been encouraged to ambulate. I've ordered a B-type natriuretic peptide and other repeat laboratory studies for the morning.
[2019-04-10] MEDS ORDERED: ALPRAZolam 0.5 MG Tab PO PRN (17:46)
[2019-04-10] MEDS ORDERED: Temazepam 15 MG Cap PO PRN (19:00)
[2019-04-10] MEDS ORDERED: Acetaminophen 325 MG Tab PO PRN (19:00)
[2019-04-10] MEDS ORDERED: oxyCODONE 5 MG Tab PO PRN (19:00)
[2019-04-10] MEDS ORDERED: Docusate Sodium 100 MG Cap PO PRN (19:00)
[2019-04-10] MEDS ORDERED: Ondansetron 4 MG Tab.DIS PO PRN (19:00)
[2019-04-10] MEDS ORDERED: Morphine 2 MG/ML Syringe IV PRN (19:15)
[2019-04-10] MEDS ORDERED: TICAGRELOR 90 MG PO SCH (19:30)
[2019-04-10] MEDS: Omeprazole 20 MG Cap.CR PO SCH (19:35)
[2019-04-10] MEDS: atorvaSTATin 40 MG Tab PO SCH ×2 (19:35→22:50)
[2019-04-10] MEDS: Metoprolol Tartrate 25 MG Tab PO SCH (19:35)
[2019-04-10] MEDS ORDERED: Metoprolol Tartrate 25 MG Tab PO SCH (21:00)
[2019-04-11 05:55] LABS: CHLORIDE,CL 110 mmol/L (98-107); SODIUM,NA 145 mmol/L (136-145)
[2019-04-11] MEDS ORDERED: TICAGRELOR 90 MG PO SCH (06:30)
[2019-04-11] MEDS: Metoprolol Tartrate 25 MG Tab PO SCH (06:31)
[2019-04-11] MEDS: Omeprazole 20 MG Cap.CR PO SCH (06:33)
[2019-04-11] MEDS ORDERED: Levothyroxine 25 MCG Tab PO SCH (07:30)
[2019-04-11] MEDS ORDERED: Omeprazole 20 MG Cap.CR PO SCH (07:30)
[2019-04-11] MEDS ORDERED: Potassium Chloride 10 MEQ Tab.ER PO SCH (08:00)
--- NOTE | 2019-04-11 11:22 | PCM.DCSUM1 ---
Discharge Summary - Hospital Course Free Text/Narrative:: Admission date: 04/10/2019 Discharge date: 04/11/2019 Admission diagnosis: #1. ACS rule out #2. Lightheadedness #3. Recent DE s/p stenting #4. HTN #5. Hypothyroidism #6. Anxiety Discharge diagnosis: #1. ACS rule out #2. Lightheadedness - improved #3. Recent DE s/p stenting #4. HTN #5. Hypothyroidism #6. Anxiety Hospital course: 53F hx of a recent myocardial infarction sent to [facility] for further work up s/p stenting returned to the ER with a chief complaint of dizziness and lightheadedness. She was placed on cardiac monitoring, along with EKG which was unremarakble. On my evaluation, she said her symptoms have improved. She is concerned about this possibly being a medication s/e. At this time, the benefits of metoprolol were discussed with the patient and will be continued. She will be sent home on a zio patch to rule out possible new onset arryhthmia. She will be continued to followed by PCP and will have her see the special weapons and tactics officer in [place]. She agrees to the plan. - Discharge Data Discharge Date: 04/11/19 Discharge Disposition: Home, Self-Care 01 Condition: Stable - Patient Instructions Diet: Heart Healthy Diet Activity: As Tolerated Notify Provider of: Increased Pain, Nausea and/or Vomiting - Discharge Plan Home Medications: Home Meds ALPRAZolam [Xanax] 0.25 - 0.5 mg PO BID PRN 04/10/19 [History] Acetaminophen with Codeine [Tylenol with Codeine #3 Tablet] 30 - 300 mg PO Q4H PRN 04/10/19 [History] Aspirin [Lo-Dose Aspirin EC] 81 mg PO DAILY 04/10/19 [History] Levothyroxine Sodium [Levoxyl] 37.5 mcg PO ACBREAKFAST 04/10/19 [History] Metoprolol Tartrate 25 mg PO BID 04/10/19 [History] Omeprazole 20 mg PO BIDAC 04/10/19 [History] Ticagrelor [Brilinta] 90 mg PO BID 04/10/19 [History] atorvaSTATin [Lipitor] 40 mg PO BEDTIME 04/10/19 [History] Patient Handouts: Steps to Quit Smoking, [id number], How to Take Your Blood Pressure, Nswr-[id number], Near-Syncope, [id number]-[id number], Form - Blood Pressure Record Sheet Referrals: [facility] [Outside] Ariel Woods MD [Physician] - Kelvin Somers MD [Physician] - 04/24/19 12:15 pm (Arrive 15 minutes early with ID and insurance card) - Discharge Summary/Plan Comment DC Time >30 min.: No - Patient Data Vitals - Most Recent: Last Vital Signs Temp 36.5 C 04/11/19 07:00 Pulse 60 04/11/19 07:00 Resp 16 04/11/19 07:00 BP 142/70 H 04/11/19 08:15 Pulse Ox 98 04/11/19 07:00 Weight - Most Recent: 79.333 kg I&O - Last 24 hours: Intake & Output 04/10/19 04/11/19 04/11/19 22:59 06:59 14:59 Intake Total 1357 Output Total 650 Balance 707 Lab Results - Last 24 hrs: Laboratory Results - last 24 hr 04/10/19 04/10/19 04/10/19 Range/Units 14:55 14:55 14:55 WBC 7.59 (4.0-11.0) K/uL RBC 4.63 (4.30-5.90) M/uL Hgb 14.2 (12.0-16.0) g/dL Hct 41.2 (36.0-46.0) % MCV 89.0 (80.0-98.0) fL MCH 30.7 (27.0-32.0) pg MCHC 34.5 (31.0-37.0) g/dL RDW Std Deviation 39.7 (28.0-62.0) fl RDW Coeff of [place] 13 (11.0-15.0) % Plt Count 256 (150-400) K/uL MPV 10.20 (7.40-12.00) fL Neut % (Auto) 48.4 (48.0-80.0) % Lymph % (Auto) 38.7 (16.0-40.0) % Wood % (Auto) 8.2 (0.0-15.0) % Eos % (Auto) 3.8 (0.0-7.0) % Baso % (Auto) 0.9 (0.0-1.5) % Neut # (Auto) 3.7 (1.4-5.7) K/uL Lymph # (Auto) 2.9 H (0.6-2.4) K/uL [place] # (Auto) 0.6 (0.0-0.8) K/uL Eos # (Auto) 0.3 (0.0-0.7) K/uL Baso # (Auto) 0.1 (0.0-0.1) K/uL Nucleated RBC % 0.0 /100WBC Nucleated RBCs # 0 K/uL INR 0.94 Sodium 142 (136-145) mmol/L Potassium 3.9 (3.5-5.1) mmol/L Chloride 104 (98-107) mmol/L Carbon Dioxide 25.8 (21.0-32.0) mmol/L BUN 15 (7.0-18.0) mg/dL Creatinine 1.0 (0.6-1.0) mg/dL Est Cr Clr Drug Dosing 61.81 mL/min Estimated GFR (MDRD) 57.6 ml/min Glucose 99 (74-106) mg/dL Calcium 8.7 (8.5-10.1) mg/dL Total Bilirubin 0.3 (0.2-1.0) mg/dL AST 24 (15-37) IU/L ALT 27 (14-63) IU/L Alkaline Phosphatase 96 (46-116) U/L Troponin I < 0.050 (0.000-0.056) ng/mL B-Natriuretic Peptide (<100) PG/ML Total Protein 7.7 (6.4-8.2) g/dL Albumin 4.0 (3.4-5.0) g/dL Globulin 3.7 (2.6-4.0) g/dL Albumin/Globulin Ratio 1.1 (0.9-1.6) Urine Color Urine Appearance Urine pH (5.0-8.0) Ur Specific [place] (1.001-1.035) Urine Protein (NEGATIVE) mg/dL Urine Glucose (UA) (NEGATIVE) mg/dL Urine Ketones (NEGATIVE) mg/dL Urine Occult Blood (NEGATIVE) Urine Nitrite (NEGATIVE) Urine Bilirubin (NEGATIVE) Urine Urobilinogen (<2.0) EU/dL Ur Leukocyte Esterase (NEGATIVE) Urine RBC (0-2/HPF) Urine WBC (0-5/HPF) Ur Epithelial Cells (NONE-FEW) Urine Bacteria (NEGATIVE) 04/10/19 04/10/19 04/10/19 Range/Units 15:12 19:22 19:22 WBC (4.0-11.0) K/uL RBC (4.30-5.90) M/uL Hgb (12.0-16.0) g/dL Hct (36.0-46.0) % MCV (80.0-98.0) fL MCH (27.0-32.0) pg MCHC (31.0-37.0) g/dL RDW Std Deviation (28.0-62.0) fl RDW Coeff of [place] (11.0-15.0) % Plt Count (150-400) K/uL MPV (7.40-12.00) fL Neut % (Auto) (48.0-80.0) % Lymph % (Auto) (16.0-40.0) % Wood % (Auto) (0.0-15.0) % Eos % (Auto) (0.0-7.0) % Baso % (Auto) (0.0-1.5) % Neut # (Auto) (1.4-5.7) K/uL Lymph # (Auto) (0.6-2.4) K/uL [place] # (Auto) (0.0-0.8) K/uL Eos # (Auto) (0.0-0.7) K/uL Baso # (Auto) (0.0-0.1) K/uL Nucleated RBC % /100WBC Nucleated RBCs # K/uL INR Sodium (136-145) mmol/L Potassium (3.5-5.1) mmol/L Chloride (98-107) mmol/L Carbon Dioxide (21.0-32.0) mmol/L BUN (7.0-18.0) mg/dL Creatinine (0.6-1.0) mg/dL Est Cr Clr Drug Dosing mL/min Estimated GFR (MDRD) ml/min Glucose (74-106) mg/dL Calcium (8.5-10.1) mg/dL Total Bilirubin (0.2-1.0) mg/dL AST (15-37) IU/L ALT (14-63) IU/L Alkaline Phosphatase (46-116) U/L Troponin I < 0.050 (0.000-0.056) ng/mL B-Natriuretic Peptide 38 (<100) PG/ML Total Protein (6.4-8.2) g/dL Albumin (3.4-5.0) g/dL Globulin (2.6-4.0) g/dL Albumin/Globulin Ratio (0.9-1.6) Urine Color YELLOW Urine Appearance CLEAR Urine pH 6.5 (5.0-8.0) Ur Specific [place] <= 1.005 (1.001-1.035) Urine Protein NEGATIVE (NEGATIVE) mg/dL Urine Glucose (UA) NEGATIVE (NEGATIVE) mg/dL Urine Ketones NEGATIVE (NEGATIVE) mg/dL Urine Occult Blood NEGATIVE (NEGATIVE) Urine Nitrite NEGATIVE (NEGATIVE) Urine Bilirubin NEGATIVE (NEGATIVE) Urine Urobilinogen 0.2 (<2.0) EU/dL Ur Leukocyte Esterase NEGATIVE (NEGATIVE) Urine RBC 0-2 (0-2/HPF) Urine WBC 0-2 (0-5/HPF) Ur Epithelial Cells OCCASIONAL (NONE-FEW) Urine Bacteria RARE (NEGATIVE) 04/11/19 04/11/19 04/11/19 Range/Units 00:56 05:00 05:00 WBC 6.56 (4.0-11.0) K/uL RBC 4.39 (4.30-5.90) M/uL Hgb 13.1 (12.0-16.0) g/dL Hct 39.7 (36.0-46.0) % MCV 90.4 (80.0-98.0) fL MCH 29.8 (27.0-32.0) pg MCHC 33.0 (31.0-37.0) g/dL RDW Std Deviation 41.2 (28.0-62.0) fl RDW Coeff of [place] 13 (11.0-15.0) % Plt Count 237 (150-400) K/uL MPV 10.30 (7.40-12.00) fL Neut % (Auto) 44.0 L (48.0-80.0) % Lymph % (Auto) 41.5 H (16.0-40.0) % [place] % (Auto) 8.1 (0.0-15.0) % Eos % (Auto) 5.5 (0.0-7.0) % Baso % (Auto) 0.9 (0.0-1.5) % Neut # (Auto) 2.9 (1.4-5.7) K/uL Lymph # (Auto) 2.7 H (0.6-2.4) K/uL [place] # (Auto) 0.5 (0.0-0.8) K/uL Eos # (Auto) 0.4 (0.0-0.7) K/uL Baso # (Auto) 0.1 (0.0-0.1) K/uL Nucleated RBC % 0.0 /100WBC Nucleated RBCs # 0 K/uL INR Sodium 145 (136-145) mmol/L Potassium 3.8 (3.5-5.1) mmol/L Chloride 110 H (98-107) mmol/L Carbon Dioxide 28.5 (21.0-32.0) mmol/L BUN 13 (7.0-18.0) mg/dL Creatinine 0.9 (0.6-1.0) mg/dL Est Cr Clr Drug Dosing 55.86 mL/min Estimated GFR (MDRD) > 60.0 ml/min Glucose 92 (74-106) mg/dL Calcium 8.3 L (8.5-10.1) mg/dL Total Bilirubin 0.3 (0.2-1.0) mg/dL AST 14 L (15-37) IU/L ALT 19 (14-63) IU/L Alkaline Phosphatase 78 (46-116) U/L Troponin I < 0.050 (0.000-0.056) ng/mL B-Natriuretic Peptide (<100) PG/ML Total Protein 6.6 (6.4-8.2) g/dL Albumin 3.1 L (3.4-5.0) g/dL Globulin 3.5 (2.6-4.0) g/dL Albumin/Globulin Ratio 0.9 (0.9-1.6) Urine Color Urine Appearance Urine pH (5.0-8.0) Ur Specific [place] (1.001-1.035) Urine Protein (NEGATIVE) mg/dL Urine Glucose (UA) (NEGATIVE) mg/dL Urine Ketones (NEGATIVE) mg/dL Urine Occult Blood (NEGATIVE) Urine Nitrite (NEGATIVE) Urine Bilirubin (NEGATIVE) Urine Urobilinogen (<2.0) EU/dL Ur Leukocyte Esterase (NEGATIVE) Urine RBC (0-2/HPF) Urine WBC (0-5/HPF) Ur Epithelial Cells (NONE-FEW) Urine Bacteria (NEGATIVE) Med Orders - Current: Current Medications Acetaminophen (Tylenol) 650 mg PO Q4H PRN PRN Reason: Pain (Mild 1-3)/fever Last Admin: 04/10/19 20:39 Dose: 650 mg Alprazolam (Xanax) 0.5 mg PO BID PRN PRN Reason: Anxiety Atorvastatin Calcium (Lipitor) 40 mg PO BEDTIME [facility] Last Admin: 04/10/19 22:50 Dose: Not Given Docusate Sodium (Colace) 100 mg PO BID PRN PRN Reason: Constipation Sodium Chloride (Normal Saline) 1,000 mls @ 999 mls/hr IV ASDIRECTED [facility] Last Admin: 04/10/19 14:34 Dose: 999 mls/hr Sodium Chloride (Normal Saline) 1,000 mls @ 75 mls/hr IV ASDIRECTED [facility] Last Admin: 04/10/19 20:47 Dose: 75 mls/hr Levothyroxine Sodium (Levothyroxine) 37.5 mcg PO ACBREAKFAST [facility] Last Admin: 04/11/19 06:31 Dose: 37.5 mcg Metoprolol Tartrate (Lopressor) 25 mg PO [phone] [facility] Last Admin: 04/11/19 06:31 Dose: 25 mg Morphine Sulfate (Morphine) 2 mg IV Q2H PRN PRN Reason: Pain (severe 7-10) Stop: 04/11/19 19:16 Omeprazole (Omeprazole) 20 mg PO [phone] [facility] Last Admin: 04/11/19 06:33 Dose: 20 mg Ondansetron HCl (Zofran Odt) 4 mg PO Q6H PRN PRN Reason: nausea, able to take PO Oxycodone HCl (Oxycodone) 5 mg PO Q4H PRN PRN Reason: Pain (moderate 4-6) Ticagrelor 90 Mg (Own Med) 1 each PO [phone] [facility] Last Admin: 04/11/19 06:34 Dose: 1 each Potassium Chloride (Klor-Con 10) 10 meq PO BIDMEALS [facility] Last Admin: 04/11/19 09:31 Dose: Not Given Temazepam (Restoril) 15 mg PO BEDTIME PRN PRN Reason: Sleep Discontinued Medications Metoprolol Tartrate (Lopressor) 25 mg PO BID JOSE Omeprazole (Omeprazole) 20 mg PO BIDAC JOSE Ticagrelor 90 Mg 1 each PO BID JOSE Ticagrelor 90 Mg (Own Med) 1 each PO [phone] [facility] Last Admin: 04/10/19 20:32 Dose: Not Given
== END 2019-04-11 11:40 | disposition home or self-care (01) ==
LOC: MW.ED 14:24 → MW.MS 16:58
PROVIDERS: ADMIT Internal Medicine; ATTEND Internal Medicine
DX: I11.0 Hypertensive heart disease with heart failure (principal); I25.2 Old myocardial infarction; E03.9 Hypothyroidism, unspecified; I25.10 Atherosclerotic heart disease of native coronary artery without angina pectoris; K21.9 Gastro-esophageal reflux disease without esophagitis; R42 Dizziness and giddiness; F41.9 Anxiety disorder, unspecified; F17.210 Nicotine dependence, cigarettes, uncomplicated; Z86.79 Personal history of other diseases of the circulatory system; Z88.1 Allergy status to other antibiotic agents; Z95.5 Presence of coronary angioplasty implant and graft; Z79.82 Long term (current) use of aspirin; Z79.02 Long term (current) use of antithrombotics/antiplatelets; Z79.899 Other long term (current) drug therapy
CPT/HCPCS: 36415; 70450; 71045; 80053; 81001; 83880; 84484; 85025; 85610; 93005; 93306; 96360; 96361; 99285; A9270; G0378; J7040; 99284

== ENCOUNTER 2020-12-30 17:23 | Emergency (ER) | payer BC, OTHER ==
[2020-12-30 18:11] LABS: BLOOD UREA NITROGEN,BUN 16 mg/dL (7.0-18.0); CARBON DIOXIDE,CO2 29.2 mmol/L (21.0-32.0); CHLORIDE,CL 101 mmol/L (98-107); GLUCOSE RANDOM 92 mg/dL (74-106); POTASSIUM,K 3.4 mmol/L (3.5-5.1); SODIUM,NA 139 mmol/L (136-145)
[2020-12-30] MEDS ORDERED: LORazepam 2 MG/ML SDV IVPUSH ONE (18:21)
[2020-12-30] MEDS ORDERED: Potassium Chloride 10% 20 MEQ/15 ML Soln 30 ML UD Cup PO ONE (18:21)
--- NOTE | 2020-12-30 18:36 | CR ---
INDICATION: Chest pain TECHNIQUE: Chest 1 views COMPARISON: 04/10/2019 FINDINGS: Cardiovascular and mediastinum: Heart size and vasculature are normal in caliber and appearance. Lungs and pleural spaces: Lungs are clear. No sign of infiltrate or mass. No sign of pleural effusion. No pneumothorax. Bones and soft tissues: No significant findings. IMPRESSION: No acute findings and no significant changes from the prior exam. Dictated by Theo Machuca MD @ Dec 30 2020 6:33PM Signed by Dr. Theo Machuca @ Dec 30 2020 6:34PM
[2020-12-30] MEDS ORDERED: Calcium Gluconate 10% 1 GM/10 ML SDV IV STA (18:41)
--- NOTE | 2020-12-30 18:44 | EDM.PDOC ---
<Hemanth Terry - Last Filed: 12/30/20 19:16> ED HPI GENERAL MEDICAL PROBLEM - General Chief Complaint: Chest Pain Stated Complaint: CHEST PAIN, DOUBLE VISION Time Seen by Provider: 12/30/20 17:30 - History of Present Illness INITIAL COMMENTS - FREE TEXT/NARRATIVE: CHIEF COMPLAINT(S): Double vision HISTORY OF PRESENT ILLNESS: This is a 55-year-old woman with a past medical history of CAD, hypertension, hypothyroidism who comes to the emergency department with a chief complaint of double vision. The patient states that off-and-on for approximately 1 week she has been experiencing double vision. She denies any trouble walking but states that she does have a mild headache located on the anterior part of her head. She denies any trouble walking, trouble speaking, trouble swallowing. She denies any numbness or tingling in any extremity. She describes the headache as achy and mild rated 1-2 out of 10. She states that the double vision does not cause her to be dizzy but she has noticed it especially at work. She states that she had does have a history of dry eyes so she thought this was it so she has been using eyedrops which has not caused it to improve. She states that the headache and the double vision seem to happen mostly during the day. She denies any head injury or loss of consciousness. 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 In addition to this she has been experiencing intermittent stabbing chest pain located in the center of her chest without any radiation. She describes this pain as 1-2 out of 10 and intermittent. She denies any shortness of breath or diaphoresis. She denies any nausea, numbness, tingling, weakness. She states she had a prior heart attack and this feels different. She states the last time she had a heart attack that it was pressure like it was sitting in the middle of her chest. She states at that time she was transferred and had 3 stents placed. She states that the primary care physician told her to come to the emergency department. She denies any other symptoms. REVIEW OF SYSTEMS: Constitutional: Denies fever, chills. Eyes: Denies eye pain or discharge Ears, Nose, Mouth, & Throat: Denies earache, sore throat, runny nose Cardiovascular: Positive for intermittent sharp central chest pain Respiratory: Denies shortness of breath Gastrointestinal: Positive for occasional nausea. Denies vomiting, diarrhea, hematochezia Genitourinary: Denies hematuria dysuria Skin:Denies a rash MSK: Denies joint pain Neurological: Positive for double vision. Denies numbness, tingling, weakness, trouble walking, trouble speaking, trouble swallowing Psychiatric: Denies depression PAST MEDICAL HISTORY: As per history of present illness and as reviewed below otherwise noncontributory. SURGICAL HISTORY: As per history of present illness and as reviewed below otherwise noncontributory. SOCIAL HISTORY: As per history of present illness and as reviewed below otherwise noncontributory. FAMILY HISTORY: As per history of present illness and as reviewed below otherwise noncontributory. EXAMINATION OF ORGAN SYSTEMS/BODY AREAS: Constitutional: Blood pressure is 193/95, heart rate 79, respiratory rate 18 with an oxygen saturation of 94% on room air. Temperature 36.6 General: Middle-aged woman who does not appear to be in acute distress Psychiatric: Appears anxious. Eyes: No scleral icterus or conjunctival erythema pulls were 2 to 3 mm bilaterally and reactive. They were equal. No vertical or horizontal nystagmus. No rotary nystagmus. Visual acuity was 20/50 in left eye, 20/40 in right eye. ENMT: Moist mucous membranes. No pharyngeal erythema bilateral tympanic membranes clear without any effusion or bulging. Nasal turbinates are clear. Cardiovascular: Regular, rate, and rhythm. No gallops, murmurs, or rubs. Bilateral upper extremity pulses symmetric and intact. Trace pitting edema of the bilateral lower extremities. No JVD. Respiratory: Lungs clear to auscultation bilaterally. No wheezes, rales, or rhonchi. Gastrointestinal: Soft, non-tender, non-distended. Normoactive bowel sounds Genitourinary: No suprapubic tenderness Musculoskeletal: Normal range of motion. Skin: No lesions or abrasions. Neurological: AOx4. CN grossly intact. Stregth 5/5 in bilateral upper and lower extremity. Sensation is intact bilaterally in upper and lower extremity. Gait appears normal. Finger to nose, heel to de souza, rapid alternating movements intact. MEDICAL DECISION MAKING AND COURSE IN THE ED WITH INTERPRETATION/REVIEW OF DIAGNOSTIC STUDIES: This is a 55-year-old woman with a past medical history of CAD status post stents, hypertension and hypothyroidism who comes to the emergency department with multiple complaints including intermittent mild headache associated with diplopia without any focal deficit on examination today with no visual field defects or abnormalities obvious on examination with intermittent chest pain who is hypertensive. At this time an EKG was obtained which did not reveal any acute signs of ischemia. Given her cardiac history the patient will undergo a cardiac work-up. At this time I did discuss with her that given that is been 1 week we could start with CT head and CTA of the head and neck to evaluate for any abnormality. I discussed with her that this may require an MRI and transfer. She was amenable to this plan. She states that she does get anxious in CT so she requested some anxiety medication. Therefore I provided the patient with 2 mg of IV Ativan. Laboratory: CBC is unremarkable. BMP reveals hypokalemia at 3.4, mild elevation in creatinine at 1.1 and hypocalcemia 8.3. Needs him is normal at 2.2. Troponin is negative. Twelve-lead EKG interpreted by myself. Normal sinus rhythm at a rate of 80 beats per minute. Normal axis. DC interval is 150 ms. QRS duration is [address] segments are normal without elevations or depressions. There is a Q wave in lead V2. Hypertrophy not noted. No changes demonstrated from prior EKG dated 04/10/2019. Interpretation: Normal sinus rhythm The radiological images were viewed by myself along with reading the report from the radiologist. Chest x-ray does not reveal any acute cardiopulmonary process. Given the hypokalemia and hypocalcemia I did replenish these. At the time of signout the patient was in CT. The oncoming night team physician will follow up on CT reads and final disposition. My reevaluation the patient's blood pressure had improved and was still saturating 96% on room air. DISPOSITION: The patient was signed out to oncoming night team physician pending CT and reevaluation CONDITION: Fair PROCEDURES: None FINAL IMPRESSION(S)/DIAGNOSES: 1. Acute diplopia 2. Acute chest pain 3. Acute headache Hemanth Terry M.D. chest Pain Score (Numeric/FACES): 4 - Related Data Allergies Allergy/AdvReac Type Severity Reaction Status Date / Time cefuroxime sodium Allergy Hives Verified 12/30/20 17:40 [From Zinacef] cephalexin monohydrate Allergy Hives Verified 12/30/20 17:40 [From Keflex] Penicillins Allergy Hives Verified 12/30/20 17:40 Home Meds: Home Meds ALPRAZolam [Xanax] 0.25 - 0.5 mg PO BID PRN 04/10/19 [History] Acetaminophen with Codeine [Tylenol with Codeine #3 Tablet] 30 - 300 mg PO Q4H PRN 04/10/19 [History] Aspirin [Lo-Dose Aspirin EC] 81 mg PO DAILY 04/10/19 [History] Levothyroxine Sodium [Levoxyl] 37.5 mcg PO ACBREAKFAST 04/10/19 [History] Metoprolol Tartrate 25 mg PO BID 04/10/19 [History] Omeprazole 20 mg PO BIDAC 04/10/19 [History] Ticagrelor [Brilinta] 90 mg PO BID 04/10/19 [History] atorvaSTATin [Lipitor] 40 mg PO BEDTIME 04/10/19 [History] Past Medical History HEENT History: Reports: None Cardiovascular History: Reports: CAD, [place], Stents Respiratory History: Reports: None Gastrointestinal History: Reports: GERD Genitourinary History: Reports: None Musculoskeletal History: Reports: None Neurological History: Reports: None Psychiatric History: Reports: Anxiety Endocrine/Metabolic History: Reports: Hypothyroidism Hematologic History: Reports: None - Infectious Disease History Infectious Disease History: Reports: Chicken Pox, Shingles - Past Surgical History GI Surgical History: Reports: Colonoscopy Female Surgical History: Reports: Section, Hysterectomy Social & Family History - Family History Family Medical History: No Pertinent Family History Cardiac: Reports: LA Other Cardiac Family History: mother has had two LA's - Caffeine Use Caffeine Use: Reports: None - Recreational Drug Use Recreational Drug Use: No - Living Situation & Occupation Living situation: Reports: , with Family Occupation: Retired ED ROS GENERAL - Review of Systems Review Of Systems: See Below ED EXAM, GENERAL - Physical Exam Exam: See Below Departure - Departure Disposition: DC/Tfer to Acute Hospital 02 Clinical Impression: Diplopia - Discharge Information Referrals: Kelvin Somers MD [Primary Care Provider] - Forms: ED Department Discharge Additional Instructions: Please go to the [facility] ED in [facility]. The following information is given to patients seen in the emergency department who are being discharged to home. This information is to outline your options for follow-up care. We provide all patients seen in our emergency department with a follow-up referral. The need for follow-up, as well as the timing and circumstances, are variable depending upon the specifics of your emergency department visit. If you don't have a primary care physician on staff, we will provide you with a referral. We always advise you to contact your personal physician following an emergency department visit to inform them of the circumstance of the visit and for follow-up with them and/or the need for any referrals to a consulting specialist. The emergency department will also refer you to a specialist when appropriate. This referral assures that you have the opportunity for follow-up care with a specialist. All of these measure are taken in an effort to provide you with optimal care, which includes your follow-up. Under all circumstances we always encourage you to contact your private physician who remains a resource for coordinating your care. When calling for follow-up care, please make the office aware that this follow-up is from your recent emergency room visit. If for any reason you are refused follow-up, please contact the [facility] Emergency Department at and asked to speak to the emergency department charge nurse. Sepsis Event Note (ED) - Evaluation Sepsis Screening Result: No Definite Risk <Jann Santiago - Last Filed: 12/30/20 20:58> Course - Vital Signs Last Recorded V/S: Last Vital Signs Temp 98 F 12/30/20 17:36 Pulse 84 12/30/20 19:46 Resp 18 12/30/20 19:46 BP 150/97 H 12/30/20 19:46 Pulse Ox 98 12/30/20 19:46 - Orders/Labs/Meds Orders: Active Orders 24 hr Category Date Time Status EKG Documentation Completion [RC] STAT Care 12/30/20 17:49 Active CORONAVIRUS COVID-19 LEONARDO [MOLEC] Stat Lab 12/30/20 19:29 Received Labs: Laboratory Tests 12/30/20 12/30/20 12/30/20 Range/Units 17:32 17:32 17:32 WBC 8.80 (4.0-11.0) K/uL RBC 4.70 (4.30-5.90) M/uL Hgb 14.3 (12.0-16.0) g/dL Hct 43.0 (36.0-46.0) % MCV 91.5 (80.0-98.0) fL MCH 30.4 (27.0-32.0) pg MCHC 33.3 (31.0-37.0) g/dL RDW Std Deviation 42.6 (28.0-62.0) fl RDW Coeff of Duncan 13 (11.0-15.0) % Plt Count 247 (150-400) K/uL MPV 10.50 (7.40-12.00) fL Neut % (Auto) 41.5 L (48.0-80.0) % Lymph % (Auto) 43.5 H (16.0-40.0) % [place] % (Auto) 9.8 (0.0-15.0) % Eos % (Auto) 4.4 (0.0-7.0) % Baso % (Auto) 0.8 (0.0-1.5) % Neut # (Auto) 3.7 (1.4-5.7) K/uL Lymph # (Auto) 3.8 H (0.6-2.4) K/uL [place] # (Auto) 0.9 H (0.0-0.8) K/uL Eos # (Auto) 0.4 (0.0-0.7) K/uL Baso # (Auto) 0.1 (0.0-0.1) K/uL Nucleated RBC % 0.0 /100WBC Nucleated RBCs # 0 K/uL Sodium 139 (136-145) mmol/L Potassium 3.4 L (3.5-5.1) mmol/L Chloride 101 (98-107) mmol/L Carbon Dioxide 29.2 (21.0-32.0) mmol/L BUN 16 (7.0-18.0) mg/dL Creatinine 1.1 H (0.6-1.0) mg/dL Est Cr Clr Drug Dosing 44.63 mL/min Estimated GFR (MDRD) 51.2 ml/min Glucose 92 (74-106) mg/dL Calcium 8.3 L (8.5-10.1) mg/dL Magnesium 2.2 (1.8-2.4) mg/dL Troponin I < 0.050 (0.000-0.056) ng/mL Free T4 0.84 (0.76-1.46) ng/dL TSH 3rd Generation 7.24 H (0.36-3.74) uIU/mL Meds: Medications Discontinued Medications Generic Name Dose Route Start Last Admin Trade Name Freq PRN Reason Stop Dose Admin Calcium Gluconate 1 gm 12/30/20 18:41 12/30/20 19:19 Calcium Gluconate IV 12/30/20 18:42 1 gm ONETIME STA Administration Lorazepam 2 mg 12/30/20 18:21 12/30/20 18:30 Ativan IVPUSH 12/30/20 18:22 2 mg ONETIME ONE Administration Potassium Chloride 40 meq 12/30/20 18:21 12/30/20 18:30 Potassium Chloride PO 12/30/20 18:22 40 meq ONETIME ONE Administration Departure - Departure Time of Disposition: 20:58 Condition: Good - Discharge Information *PRESCRIPTION DRUG MONITORING PROGRAM REVIEWED*: Not Applicable *COPY OF PRESCRIPTION DRUG MONITORING REPORT IN PATIENT [place]: Not Applicable Sepsis Event Note (ED) - Focused Exam Vital Signs: Vital Signs Temp Pulse Resp BP Pulse Ox 12/30/20 19:46 84 18 150/97 H 98 12/30/20 17:36 98 F 79 18 193/95 H 92 L - Assessment/Plan Assessment:: Patient received in signout from Dr. Terry at [address] CTA is without any acute abnormality. On my reassessment the patient is asymptomatic her vital signs are normal. On my exam the patient endorses inducible diplopia with rightward gaze. I think it is most likely that she has a nerve palsy. Stroke certainly needs to be considered. We do not have the ability to get an MRI tonight and getting an MRI as an outpatient will take several days. For this reason we discussed the potential for transfer to [facility] for [facility] and further evaluation. Patient and agreeable to this plan. Will discuss with the physician in [place]. 2033: Pt discussed with Dr. العلي (ED at [facility] in [place]) who requested a discussion with neurology. Pt then discussed with Dr. Grady. He accepts the patient for transfer for MRI brain with and without. I do think the patient is stable for transfer by POV.
--- NOTE | 2020-12-30 19:31 | CT ---
INDICATION: Double vision TECHNIQUE: CT Head without i.v. contrast. Coronal and sagittal reformats were obtained. COMPARISON: 04/10/2019 FINDINGS: CSF space: The ventricles are normal for age. Brain: No evidence of mass, acute infarction or hemorrhage is seen. No mass-effect or midline shift is seen. The brain parenchyma is otherwise normal in appearance with preservation of the momin-white matter junction. Calvarium: The visualized paranasal sinuses are well aerated. The mastoid air cells are clear. The visualized orbits are grossly unremarkable. The calvarium is unremarkable in appearance with no fractures identified. IMPRESSION: 1. No evidence of acute infarction, intracranial hemorrhage, or mass-effect seen. Please note that all CT scans at this facility use dose modulation, iterative reconstruction, and/or weight-based dosing when appropriate to reduce radiation dose to as low as reasonably achievable. Dictated by: Wilner Valdez MD @ 12/30/2020 19:30:01 (Electronically Signed)
--- NOTE | 2020-12-30 19:39 | CT ---
INDICATION: Double vision. TECHNIQUE: After standard noncontrast head CT, high resolution axial CT images acquired through the head and neck following rapid intravenous administration of iodinated contrast. Multiplanar MIPS of cranial and cervical vasculature performed. FINDINGS: Noncontrast head CT: There is no intracranial hemorrhage or fluid collection. The momin-white matter differentiation is maintained. The ventricles are of normal morphology. The basal cisterns are clear. CTA head: There is normal filling of the intracranial vasculature; i.e. there is no large vessel occlusion or significant intracranial stenosis. There is no cerebral aneurysm or evidence for vascular malformation. CTA neck: There is no significant carotid or vertebral artery stenosis or dissection. The soft tissues of the neck are within normal limits. The cervical spine is in normal alignment. Degenerative changes are noted in the cervical spine. The lung apices are clear. IMPRESSION: Unremarkable CT head, CTA head and neck. Pawan Bahena MD Neurointerventional [employer] Please note that all CT scans at this facility use dose modulation, iterative reconstruction, and/or weight-based dosing when appropriate to reduce radiation dose to as low as reasonably achievable. Dictated by Pawan Bahena MD @ Dec 31 2020 8:30AM Signed by Dr. Pawan Bahena @ Dec 31 2020 8:38AM
== END 2020-12-30 21:25 ==
LOC: MW.ED 17:23
DX: H53.2 Diplopia (principal); R07.9 Chest pain, unspecified; I25.10 Atherosclerotic heart disease of native coronary artery without angina pectoris; I10 Essential (primary) hypertension; E03.9 Hypothyroidism, unspecified; I25.2 Old myocardial infarction; K21.9 Gastro-esophageal reflux disease without esophagitis; Z95.5 Presence of coronary angioplasty implant and graft; Z79.82 Long term (current) use of aspirin; Z20.822 Contact with and (suspected) exposure to COVID-19; Z79.899 Other long term (current) drug therapy
CPT/HCPCS: 36415; 70450; 70496; 70498; 71045; 80048; 83735; 84439; 84443; 84484; 85025; 87635; 93005; 96374; 96375; 99285; A9270; J0610; J2060; 93010; 99284; U0002

== ENCOUNTER 2021-04-28 07:58 | Emergency (ER) | payer OTHER ==
[2021-04-28] MEDS ORDERED: Sodium Chloride 0.9% 10 ML Syringe FLUSH PRN (08:06)
[2021-04-28] MEDS ORDERED: Sodium Chloride 0.9% 1,000 ML IV ONE (08:06)
[2021-04-28] MEDS ORDERED: Ondansetron 4 MG/2 ML SDV IVPUSH ONE (08:06)
[2021-04-28] MEDS ORDERED: Sodium Chloride 0.9% 2.5 ML Syringe FLUSH PRN (08:06)
[2021-04-28] MEDS ORDERED: HYDROmorphone 1 MG/ML Syringe IVPUSH ONE (08:06)
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
[2021-04-28 09:07] LABS: BLOOD UREA NITROGEN,BUN 20 mg/dL (7.0-18.0); CARBON DIOXIDE,CO2 25.3 mmol/L (21.0-32.0); CHLORIDE,CL 103 mmol/L (98-107); GLUCOSE RANDOM 155 mg/dL (74-106); LIPASE 99 U/L (73-393); POTASSIUM,K 3.1 mmol/L (3.5-5.1); SODIUM,NA 139 mmol/L (136-145)
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
[2021-04-28] MEDS ORDERED: Promethazine 25 MG/ML SDV IM ONE (12:10)
== END 2021-04-28 12:40 | disposition home or self-care (01) ==
LOC: MW.ED 07:58
DX: S70.12XA Contusion of left thigh, initial encounter (principal); I25.10 Atherosclerotic heart disease of native coronary artery without angina pectoris; I25.2 Old myocardial infarction; E03.9 Hypothyroidism, unspecified; K21.9 Gastro-esophageal reflux disease without esophagitis; Z95.5 Presence of coronary angioplasty implant and graft; Z79.899 Other long term (current) drug therapy; Z79.82 Long term (current) use of aspirin; Z79.02 Long term (current) use of antithrombotics/antiplatelets; Z88.0 Allergy status to penicillin; Z88.1 Allergy status to other antibiotic agents; V49.40XA Driver injured in collision with unspecified motor vehicles in traffic accident, initial encounter
CPT/HCPCS: 36415; 71045; 73502; 73552; 73560; 80053; 82550; 83690; 84484; 85025; 93005; 96372; 96374; 96375; 99285; J1170; J2405; J2550; J7030; 93010; 99283